=== PATIENT | female | born 1960 | race Caucasian/White ===

== ENCOUNTER 2024-04-04 15:31 | Emergency (ER) | payer BC, SELFPAY ==
[2024-04-04 15:33] VITALS: BP 166/76; PULSE 89; RESP 18; TEMP 36.4; O2SAT 94; BMI 50.6
[2024-04-04 17:30] VITALS: BP 136/88; PULSE 73; RESP 16; TEMP 36.6; O2SAT 98
[2024-04-04 19:43] VITALS: BP 155/73; PULSE 68; RESP 16; TEMP 36.9; O2SAT 100
--- NOTE | 2024-04-04 22:02 | CT_ITS ---
EXAM: CT HEAD AND CERVICAL SPINE WITHOUT INTRAVENOUS CONTRAST CLINICAL INDICATION: Injury/Pain TECHNIQUE: Helically acquired images were obtained of the head/brain and cervical spine without intravenous contrast. 2D reformatted images were reviewed. This CT exam was performed using one or more of the following dose reduction techniques: automated exposure control, adjustment of the mA and/or kV according to patient size, and/or use of iterative reconstruction technique. COMPARISON: No relevant prior studies available. FINDINGS: BRAIN AND EXTRA-AXIAL SPACES: No significant abnormality. No intra- or extra-axial hemorrhage. No evidence of acute infarct. No intracranial mass or mass effect. There is preservation of the easley/white matter interface. Posterior fossa structures are unremarkable. Ventricles are appropriate for age. No hydrocephalus. Basal cisterns are patent. SKULL: No discrete lytic or blastic abnormalities. No fracture. SINUSES: Opacification of the right maxillary sinus. Mucoperiosteal thickening of the right maxillary sinus belcher. MASTOID AIR CELLS: No significant abnormality. Clear. VERTEBRAE: Mild multilevel facet arthrosis and endplate osteophytosis. No fracture. No traumatic subluxation. No discrete lytic or blastic abnormality. Normal alignment. Aside from degenerative changes, normal craniocervical junction and cervicothoracic junction. DISCS/SPINAL CANAL/NEURAL FORAMINA: Multilevel facet ankylosis is present from C2 through C4 bilaterally. 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 No critical stenosis. SOFT TISSUES: No significant abnormality. No prevertebral soft tissue swelling. LYMPH NODES: No significant abnormality. No cervical adenopathy. THYROID: Left thyroid nodule measuring 1.7 cm. LUNG APICES: Incidental azygous lobe and fissure. CT/Spine Cervical without Contras IMPRESSION: 1. No CT evidence of acute intracranial pathology. 2. Degenerative changes in the cervical spine. No acute osseous findings. 3. Left thyroid nodule measuring 1.7 cm. Recommend thyroid ultrasound for further evaluation. Electronically Signed: Murray Bernard DO at 22:33 EDT ,
--- NOTE | 2024-04-04 22:02 | CT_ITS ---
EXAM: CT HEAD AND CERVICAL SPINE WITHOUT INTRAVENOUS CONTRAST CLINICAL INDICATION: Injury/Pain TECHNIQUE: Helically acquired images were obtained of the head/brain and cervical spine without intravenous contrast. 2D reformatted images were reviewed. This CT exam was performed using one or more of the following dose reduction techniques: automated exposure control, adjustment of the mA and/or kV according to patient size, and/or use of iterative reconstruction technique. COMPARISON: No relevant prior studies available. FINDINGS: BRAIN AND EXTRA-AXIAL SPACES: No significant abnormality. No intra- or extra-axial hemorrhage. No evidence of acute infarct. No intracranial mass or mass effect. There is preservation of the easley/white matter interface. Posterior fossa structures are unremarkable. Ventricles are appropriate for age. No hydrocephalus. Basal cisterns are patent. SKULL: No discrete lytic or blastic abnormalities. No fracture. SINUSES: Opacification of the right maxillary sinus. Mucoperiosteal thickening of the right maxillary sinus belcher. MASTOID AIR CELLS: No significant abnormality. Clear. VERTEBRAE: Mild multilevel facet arthrosis and endplate osteophytosis. No fracture. No traumatic subluxation. No discrete lytic or blastic abnormality. Normal alignment. Aside from degenerative changes, normal craniocervical junction and cervicothoracic junction. DISCS/SPINAL CANAL/NEURAL FORAMINA: Multilevel facet ankylosis is present from C2 through C4 bilaterally. 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 No critical stenosis. SOFT TISSUES: No significant abnormality. No prevertebral soft tissue swelling. LYMPH NODES: No significant abnormality. No cervical adenopathy. THYROID: Left thyroid nodule measuring 1.7 cm. LUNG APICES: Incidental azygous lobe and fissure. CT/Brain/Head without Contrast IMPRESSION: 1. No CT evidence of acute intracranial pathology. 2. Degenerative changes in the cervical spine. No acute osseous findings. 3. Left thyroid nodule measuring 1.7 cm. Recommend thyroid ultrasound for further evaluation. Electronically Signed: Murray Bernard DO at 22:33 EDT ,
--- NOTE | 2024-04-04 22:03 | EDS_ITS ---
HPI History of Present Illness Chief Complaint: Fall Informant: patient Narrative Narrative: Patient is a 64-year-old female presenting to the ER for evaluation after a fall. 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 She was unloading her [employer] when she tripped on a wire and fell forward. She states she landed face first and initially hit her right arm in the shoulder region but also struck her left knee and hit her nose and forehead. She states she has a small area of bleeding from where her glasses hit her nose. She denies associate loss of conscious. She does not take any blood thinners. She denies he has a numbness or tingling. Denies any nausea or vomiting. She took ibuprofen at noon and then Tylenol at 2 PM today. She does not really have a headache but states she just bumped her head. She has no other complaints or concerns reported at this time. Patient is [id number]. PFSH PFSH Home Medications ?Medication ?Instructions ?Recorded ?Last Taken ?Type mecobalamin (vitamin B12) PO 04/04/24 Unknown History multivitamin (Daily Multi-Vitamin 1 tab PO DAILY 04/04/24 Unknown History tablet) oxycodone-acetaminophen 5 mg-325 1 tab PO Q6H PRN pain 3 days #12 04/05/24 Unknown Rx mg tablet (Percocet) tabs Allergy/AdvReac Type Severity Reaction Status Date / Time No Known Allergies Allergy Verified 04/04/24 15:33 Social History Smoking Status: Never smoker ROS [facility] ED Constitutional Constitutional ED: Denies chills or fever(s) Eyes Eyes: Denies blurry vision or change in vision ENT ENT ED: Reports other Details: No epistaxis reported, no malocclusion reported Cardiovascular Cardiovascular: Denies chest pain Respiratory/Chest Respiratory/Chest: Denies cough or dyspnea Gastrointestinal Gastrointestinal: Denies nausea or vomiting Musculoskeletal Musculoskeletal: Reports arthralgias, myalgias and other Details: Right shoulder and elbow pain ; Denies neck pain Integumentary Reports Abrasions Neurologic Neurologic: Denies headache(s), paresthesias or weakness Hematologic/Lymphatic Hematologic/Lymphatic: Denies easy bleeding or easy bruising EXAM Physical Exam Const Vital Signs: 04/04/24 15:33 04/04/24 17:30 04/04/24 19:43 Temperature 97.6 F L 97.9 F 98.4 F Temperature Source Temporal Temporal Oral Pulse Rate 89 73 68 Respiratory Rate 18 16 16 Blood Pressure 166/76 H 136/88 H 155/73 H Blood Pressure Mean 106 104 100 Pulse Ox 94 98 100 Oxygen Delivery Method Room Air Room Air Room Air Positive well nourished, well developed and obese General Appearance ED: well developed and NAD Nutritional Appearance: obese HEENT HEENT Narrative: Normocephalic. Patient superficial abrasion to the left forehead, the tip of the nose and over to the left side of the nose. No active bleeding. No malocclusion. Normal opening closing of the jaw. Patient has a cerumen impaction of the left ear canal which she states is chronic for her because she wears earplugs for work. She has a partial cerumen impaction with normal partially visualized tympanic membrane on the right. No raccoon eyes or Brody sign appreciated. Nose: Negative for septum abnormal Eyes PERRL and EOMs intact bilaterally Neck full ROM General: Negative for tenderness Chest Wall inspection of chest normal and palpation of chest normal Resp normal respiratory effort and clear to auscultation bilaterally Cardio regular rhythm Rate: regular rate GI normal to inspection, nondistended, normoactive bowel sounds and non-tender Extremity Extremity Narrative: Decreased range of motion of the right shoulder and right elbow. Tenderness palpation over the anterior right shoulder but no deformity is appreciated. She also has tenderness palpation over the ulnar head of the elbow. No joint effusion is appreciated. Does not tolerate range of motion of the elbow either. No tenderness palpation of the wrist and normal range of motion. No other deformity or significant tenderness of the extremities. Pelvis is stable. Normal range of motion of the hips specifically on the left. No joint effusion of the left knee. Normal extensor mechanism of the left lower extremity. Neuro oriented x3, moves all extremities, no focal motor deficits and no sensory deficits noted Psych mental status grossly normal and thought process normal Skin Skin Narrative: Superficial abrasion with no active bleeding noted of the anterior aspect of the left knee. Facial abrasions as noted above MDM MDM MDM Narrative Medical decision making narrative: Patient evaluated for mechanical fall with subsequent injury. She did strike her head. She has significant pain of her right shoulder and lesser pain/able to ambulate to the left knee. Differential includes limited to Wallisian hemorrhage, skull fracture, cervical spine fracture, right shoulder dislocation, right humerus fracture and right elbow fracture. Patient is given IM morphine for pain control. She is also given oral Zofran. CT imaging does not show any acute traumatic process. There is an incidental finding of left thyroid nodule measuring 1.7 cm. Patient is informed of this and need for outpatient follow-up. X-ray of the elbow does not show an acute process reviewed by myself as well as radiology. X-ray of the shoulder however shows glenohumeral subluxation and humeral head intra-articular fracture. Patient is reevaluated and informed of her findings. She has improvement of pain with morphine. I am able to passively completely range of motion her shoulders a lower suspicion for an acute subluxation. Will place in a sling. Patient is from out of town and will follow-up with her local orthopedics. Counseled to call them tomorrow. Is given a short course of Percocet for pain control. Given return precautions. Counseled on ice, range of motion exercise of the shoulder to prevent frozen shoulder and use of the sling. Is given a copy of her disc. In light of the emergency room in improved and stable condition. Is given first dose of oxycodone prior to discharge Radiography Diagnostic Testing: Clinical Impression(s) from Imaging Studies Brain CT 04/04/24 22:02 IMPRESSION: 1. No CT evidence of acute intracranial pathology. 2. Degenerative changes in the cervical spine. No acute osseous findings. 3. Left thyroid nodule measuring 1.7 cm. Recommend thyroid ultrasound for further evaluation. Electronically Signed: Murray Bernard DO at 22:33 EDT , Cervical Spine CT 04/04/24 22:02 IMPRESSION: 1. No CT evidence of acute intracranial pathology. 2. Degenerative changes in the cervical spine. No acute osseous findings. 3. Left thyroid nodule measuring 1.7 cm. Recommend thyroid ultrasound for further evaluation. Electronically Signed: Murray Bernard DO at 22:33 EDT , Elbow X-Ray 04/04/24 22:15 IMPRESSION: Negative right elbow. Electronically Signed: Murray Bernard, at 22:36 EDT , Shoulder X-Ray 04/04/24 22:15 IMPRESSION: 1. Glenohumeral subluxation and humeral head intra-articular fracture. 2. Acromioclavicular joint arthrosis. No definite fracture of the acromion or distal clavicle. Electronically Signed: Murray Bernard, at 22:36 EDT , Discharge Plan Triage Chief Complaint: Fall ED Provider: Mariposa Young Dx/Rx/DC Orders Clinical Impression: Closed right humeral fracture, Abrasion of knee, left, Abrasion of face, Thyroid nodule Instructions: ED Fracture, Upper Extremity Prescriptions: New oxycodone-acetaminophen [Percocet] 5-325 mg tablet 1 tab PO Q6H PRN (Reason: pain) 3 Days Qty: 12 0RF No Action multivitamin [Daily Multi-Vitamin] Tablet 1 tab PO DAILY mecobalamin (vitamin B12) PO Primary Care Provider: [facility] Doctor,Out of Referrals: NOT,DEFINED [Non-Staff] - Activity Restrictions/Additional Instructions: Wear sling as needed for comfort. Do range of motion of your shoulder as we discussed couple times a day. You may also take ibuprofen for pain. You have been prescribed Percocet for pain. Follow-up with orthopedics at home. Your x- ray shows Glenohumeral subluxation and humeral head intra-articular fracture. Print Language: Filipino Disposition Disposition: Home, Self Care Discharge Date/Time: 04/05/24 00:16
--- NOTE | 2024-04-04 22:15 | RAD_ITS ---
EXAM: XR RIGHT ELBOW COMPLETE, 3 OR MORE VIEWS CLINICAL INDICATION: Injury/Pain TECHNIQUE: Frontal, lateral and oblique views of the right elbow. COMPARISON: No relevant prior studies available. FINDINGS: BONES/JOINTS: No significant abnormality. There is no displacement of the anterior or posterior fat pads. No acute fracture. No subluxation. Normal alignment. Preservation of the joint space. No destructive or sclerotic lesions. SOFT TISSUES: No significant abnormality. No soft tissue swelling or gas. No radiopaque foreign body. RAD/Elbow min 3 Views IMPRESSION: Negative right elbow. Electronically Signed: Murray Bernard DO at 22:36 EDT ,
--- NOTE | 2024-04-04 22:15 | RAD_ITS ---
EXAM: XR RIGHT SHOULDER COMPLETE, 2 OR MORE VIEWS CLINICAL INDICATION: Injury/Pain TECHNIQUE: Two or more views of the right shoulder. COMPARISON: No relevant prior studies available. FINDINGS: BONES/JOINTS: Glenohumeral subluxation and humeral head intra-articular fracture. Acromioclavicular joint arthrosis. No definite fracture of the acromion or distal clavicle. Degenerative changes in the spine. No sclerotic or destructive changes observed. SOFT TISSUES: No significant abnormality. No soft tissue swelling or gas. No radiopaque foreign body. VASCULATURE: Vascular calcifications. RAD/Shoulder min 2 Views IMPRESSION: 1. Glenohumeral subluxation and humeral head intra-articular fracture. 2. Acromioclavicular joint arthrosis. No definite fracture of the acromion or distal clavicle. Electronically Signed: Murray Bernard DO at 22:36 EDT ,
[2024-04-04] MEDS: morphine 8 MG/ML Syringe IM (22:38)
[2024-04-04] MEDS: Ondansetron ODT 4 MG Tablet PO (22:39)
[2024-04-04] MEDS: oxyCODONE 5 MG Tablet PO (23:53)
== END 2024-04-05 00:16 | disposition home or self-care (01) ==
PROVIDERS: Emergency Provider Emergency Medicine; Referring Provider Emergency Medicine; Visit Provider Emergency Medicine
DX: S42.291A Other displaced fracture of upper end of right humerus, initial encounter for closed fracture (principal); E04.1 Nontoxic single thyroid nodule; S00.81XA Abrasion of other part of head, initial encounter; S80.212A Abrasion, left knee, initial encounter; S43.003A Unspecified subluxation of unspecified shoulder joint, initial encounter; S42.301A Unspecified fracture of shaft of humerus, right arm, initial encounter for closed fracture; W01.0XXA Fall on same level from slipping, tripping and stumbling without subsequent striking against object, initial encounter; E66.9 Obesity, unspecified
CPT/HCPCS: 70450; 72125; 73030; 73080; 96372; 99282